=== PATIENT | male | born 1995 | race African-American/Black ===

== ENCOUNTER 2020-03-10 14:48 | Emergency (ER) | payer OTHER ==
[~2020-03-10] VITALS: Ht 167.6 cm; Wt 90.4 kg
[2020-03-10 14:49] VITALS: BP 144/90
[2020-03-10] MEDS ORDERED: GNP1CRE5 TOP (15:48)
[2020-03-10] MEDS ORDERED: IBUP-359 PO (15:48)
== END 2020-03-10 16:02 | disposition home or self-care (01) ==
LOC: M ED 14:48
DX: M79.673 Pain in unspecified foot (principal); B35.3 Tinea pedis

== ENCOUNTER 2021-05-05 12:34 | Emergency (ER) | payer OTHER ==
[~2021-05-05] VITALS: Ht 167.6 cm; Wt 87.7 kg
[~2021-05-05 12:34] MED LIST: GNP1CRE5 TOP; IBUP-359 PO
[2021-05-05] MEDS ORDERED: AMOX500C (12:42)
[2021-05-05] MEDS ORDERED: IBUP80TA (12:42)
[2021-05-05 17:04] LABS: RSV AMPLIFICATION NEGATIVE (NEGATIVE)
[2021-05-05] MEDS ORDERED: OSELTAMIVIR PHOSPHATE 75 MG CAP (TAMIFLU) PO ONE (17:10)
[2021-05-05] MEDS ORDERED: OSEL75CA PO (17:15)
[2021-05-05 17:39] VITALS: BP 130/63
== END 2021-05-05 17:40 | disposition home or self-care (01) ==
LOC: M ED 12:34
DX: J09.X9 Influenza due to identified novel influenza A virus with other manifestations (principal)

== ENCOUNTER 2021-11-04 12:08 | Emergency (ER) | payer OTHER ==
[~2021-11-04] VITALS: Ht 170.2 cm; Wt 91.8 kg
[~2021-11-04 12:08] MED LIST changes: +AMOX500C; +IBUP80TA; +OSEL75CA PO
[2021-11-04 14:48] LABS: BASO % 0.4 % (0.0-1.0); EOS # 0.1 10^3/uL (0.0-0.5); EOS % 2.4 % (0.0-3.0); HEMATOCRIT 46.3 % (42.0-52.0); LYMPH # 2.1 10^3/uL (1.5-5.0); LYMPH % 37.2 % (24.0-44.0); MEAN CORPUSCULAR HEMOGLOBIN 29.9 pg (27.0-33.0); MEAN CORPUSCULAR HGB CONC 34.6 g/dl (32.0-36.5); MEAN CORPUSCULAR VOLUME 86.5 fl (80.0-96.0); MONO # 0.8 10^3/uL (0.0-0.8); MONO % 14.3 % (2.0-8.0); NEUTROPHILS # 2.5 10^3/uL (1.5-8.5); NEUTROPHILS % 45.5 % (36.0-66.0); PLATELET COUNT, AUTOMATED 237 10^3/uL (150-450); RED BLOOD COUNT 5.35 10^6/uL (4.30-6.10); WHITE BLOOD COUNT 5.5 10^3/uL (4.0-10.0)
[2021-11-04 14:59] LABS: INR 0.94
[2021-11-04 15:14] LABS: BLOOD UREA NITROGEN 13 MG/DL (7-18); CALCIUM LEVEL 8.9 MG/DL (8.5-10.1); CARBON DIOXIDE LEVEL 30 MEQ/L (21-32); CHLORIDE LEVEL 105 MEQ/L (98-107); CREATININE FOR GFR 1.29 MG/DL (0.70-1.30); GLOMERULAR FILTRATION RATE > 60.0 (>60); GLUCOSE, FASTING 85 MG/DL (70-100); POTASSIUM SERUM 4.1 MEQ/L (3.5-5.1); SODIUM LEVEL 139 MEQ/L (136-145)
[2021-11-04] MEDS ORDERED: BENZ200C70 PO (17:27)
[2021-11-04] MEDS ORDERED: NAPR-837 PO (17:27)
[2021-11-04 17:32] VITALS: BP 128/80
== END 2021-11-04 17:37 | disposition home or self-care (01) ==
LOC: M ED 12:08
DX: J06.9 Acute upper respiratory infection, unspecified (principal); R09.1 Pleurisy